=== PATIENT | female | born 1985 | race Caucasian/White ===

== ENCOUNTER 2020-03-16 09:12 | Outpatient (CLI) | payer MEDICAID, SELFPAY ==
--- NOTE | 2020-03-16 09:20 | US_ITS ---
WS: [id number] ULTRASOUND EARLY TECHNIQUE: Transabdominal sonography of the pelvis was performed. Followed by transvaginal sonography to better evaluate the uterus and ovaries. CLINICAL INFORMATION: SUPERVISION NORMAL LMP: 01/11/2020 Beta hCG: Unknown. COMPARISON: None. FINDINGS: Cervix measures 3.8 cm UTERUS AND GESTATIONAL SAC Intrauterine gestations: Estimated gestational age: 9w3d Estimated delivery October 16, 2020 Yolk sac: 0.6 cm. [place] rump length (CRL): 2.7 cm. heart motion: 167 BPM. Subchorionic hemorrhage: None. OVARIES Right ovary: Normal. Left ovary: Normal. FREE FLUID None. US/US OB <= 14 weeks fetus [id number] IMPRESSION: 1. Single live intrauterine . 2. Estimated gestational age; 9w3d with estimated date of delivery October 16, 2020 3. Normal adnexa.
== END 2020-03-16 09:13 | disposition home or self-care (01) ==
LOC: RAD 09:14
PROVIDERS: PCP Family Medicine; Visit Provider Family Medicine
DX: Z34.91 Encounter for supervision of normal pregnancy, unspecified, first trimester (principal); Z3A.09 9 weeks gestation of pregnancy
CPT/HCPCS: 76801

== ENCOUNTER 2020-04-27 14:57 | Outpatient (CLI) | payer MEDICAID, SELFPAY ==
--- NOTE | 2020-04-27 15:02 | US_ITS ---
WS: [id number] ULTRASOUND OB LIMITED TECHNIQUE: Limited ultrasound examination of the fetus. CLINICAL INFORMATION: VAGINAL BLEEDING,SECOND TRIMESTER COMPARISON: March 16, 2020 FINDINGS: Cervix is long and closed. Cervix measures 2.8 cm. Single interuterine gestation. presentation is cephalic Placental location is anterior. Slightly low-lying placenta. Recommend third trimester follow-up. Sahil centa grade: 0. heart rate 167 BPM. Single vertical pocket amniotic fluid 2.2 cm Anatomy: BDP: 3.0 cm = 15w4d HC: 11.6 cm = 15w5d EGA by ultrasound: 15w5d UCCA by ultrasound: 10/14/2020 US/[place] [id number] IMPRESSION: 1. Single intrauterine gestation with cephalic presentation. 2. Anterior low-lying placenta. Recommend third trimester follow-up. 3. Normal amniotic fluid volume. 4. Cervix is closed measuring 2.8 cm.
== END 2020-04-27 14:58 | disposition home or self-care (01) ==
LOC: RAD 14:58
PROVIDERS: PCP Family Medicine; Visit Provider Family Medicine
DX: O46.92 Antepartum hemorrhage, unspecified, second trimester (principal)
CPT/HCPCS: 76816

== ENCOUNTER 2020-05-25 09:03 | Outpatient (CLI) | payer MEDICAID, SELFPAY ==
--- NOTE | 2020-05-25 09:12 | US_ITS ---
WS: [id number] OBSTETRICAL ULTRASOUND COMPLETE HISTORY: ANATOMY/NORMAL COMPARISON: 03/16/2020 and 04/27/2020 Single intrauterine gestation in breech presentation. Cervix is Closed and normal length. Cervical length is 5.2 cm. Normal amount of amniotic fluid surrounds the fetus. Placenta: Placenta is anterior with no previa or abruption. Placenta grade 1. Fluid collection along the posterior wall of the uterus. This is opposite to the placenta. There is a n elongated fluid collection extending over a length of 8.8 cm byr 1.5 cm. This is beneath amnion or combination of the amnion and chorionic plate. This complex fluid collection is more cystic than on t he prior study and extends to just above the internal cervical os. Heart: 180 BPM. 4 chambers are identified. Poorly visualized outflow tracts. Anatomy: Intracranial structures and spine are negative. kidneys, stomach and urinary bladder a re unremarkable. Abdominal wall, three-vessel cord and cord insertion site are normal. 4 extremities are present. profile: Unremarkable. Gender: Female. measurements: BPD = 4.5 cm = 19w4d HC = 16.9 cm = 19w4d AC = 14.1 cm = 19w4d FL = 3.1 cm = 19w4d EFW: 298 g. Biometry is internally concordant. AGA by ultrasound: 19w4d CUCA by ultrasound: 10/15/2020 US/US OB >= 14 weeks fetus [id number] IMPRESSION: 1. Single intrauterine gestation of 19w4d with an CUCA of 10/15/2020. Appropria te growth since the first trimester ultrasound. 2. Limited visualization of four-chamber heart and outflow tracts. Otherwise a natomy is negative. 3. Elongated fluid collection along the posterior uterine wall, opposite from the placenta. Fluid collection is more cystic than on the prior study and is b eneath the amnion or amnion and chorion plate. Differential is subchorionic hem orrhage or chorioamniotic separation. Due to its large size and extension close to the internal cervical os further evaluation by maternal medicine is r ecommended. Notified Alfa Spencer MD at 05/25/2020 1:00 PM.
== END 2020-05-25 09:04 | disposition home or self-care (01) ==
LOC: RAD 09:06
PROVIDERS: PCP Family Medicine; Visit Provider Family Medicine
DX: Z34.82 Encounter for supervision of other normal pregnancy, second trimester; Z3A.19 19 weeks gestation of pregnancy
CPT/HCPCS: 76805

== ENCOUNTER 2020-06-29 10:35 | Outpatient (CLI) | payer MEDICAID, SELFPAY ==
--- NOTE | 2020-06-29 10:53 | US_ITS ---
WS: [id number] ULTRASOUND OB FOCUSED HISTORY: CERVICAL LENGTH-EVALUATE FUNNELING/NORMAL COMPARISON: 05/25/2020 Single intrauterine gestation is identified in cephalic position. Cervix is closed measuring 3.2 cm i n length. No insufficiency. heart rate at 147 BPM. Normal amount of amniotic fluid. Placenta is anterior grade 1. No previa. Previously described subamn ionic collection along the posterior uterine wall has decreased now measuring 5.7 cm in length by 1.2 cm. Near complete resolution. US/[place] [id number] IMPRESSION: 1. Near complete resolution of the subdural amniotic collection along the post erior uterine wall since 05/25/2020. 2. Cervix is closed. No cervical insufficiency.
== END 2020-06-29 10:36 | disposition home or self-care (01) ==
LOC: RAD 10:36
PROVIDERS: PCP Family Medicine; Visit Provider Family Medicine
DX: O26.879 Cervical shortening, unspecified trimester (principal)
CPT/HCPCS: 76816

== ENCOUNTER 2020-09-04 12:50 | Outpatient (CLI) | payer MEDICAID, SELFPAY ==
[2020-09-04 13:02] VITALS: BP 125/68; PULSE 98
--- NOTE | 2020-09-04 13:11 | US_ITS ---
WS: [id number] BIOPHYSICAL PROFILE AND LIMITED OB. HISTORY: Gestational Diabetes COMPARISON: 06/29/2020 Presentation: Vertex. Cervix: Closed and normal length. Placenta: Anterior, no previa or abruption. Grade: 1 HEART: FHR of 129BPM. measurements: BPD = 8.2 cm = 33w0d HC = 30.6 cm = 34w0d AC = 30.5 cm = 34w3d FL = 6.6 cm = 34w0d ANALY: 7.4 cm EFW: 2362g; 62 %. AGA by ultrasound: 33w6d CUCA by ultrasound: 10/17/2020 Measurements are internally concordant. Appropriate growth since the first trimester ultrasound. Biophysical profile: Parameters are as follows: Breathin Movement: 2 Tone: 2 Fluid volume: 2 Largest vertical pocket of amniotic fluid is 2.0 cm. US/US OB lmt w/ BPP wo NST IMPRESSION: 1. Biophysical profile score: 8/8. 2. Single intrauterine gestation of 33w6d and 10/17/2020. Appropriate growth si nce the first trimester ultrasound. 3. Abdominal circumference at the 68th percentile. Biparietal diameter 19th per centile and head circumference 16th percentile. Consider 2-3 week follow-up to evaluate for developing macrosomia.
[2020-09-04 13:17] VITALS: BP 109/57; PULSE 88
[2020-09-04 13:32] VITALS: BP 123/58; PULSE 86
[2020-09-04 13:39] VITALS: BMI 34.4
[2020-09-04 13:47] VITALS: BP 123/67; PULSE 93
[2020-09-04 14:02] VITALS: BP 124/67; PULSE 83
== END 2020-09-04 14:45 | disposition home or self-care (01) ==
LOC: OPOB 12:57 → OBGYN 12:58
PROVIDERS: PCP Family Medicine; Visit Provider Family Medicine
DX: O16.9 Unspecified maternal hypertension, unspecified trimester (principal); Z3A.00 Weeks of gestation of pregnancy not specified
CPT/HCPCS: 59025; 76815; 76819

== ENCOUNTER 2020-09-07 09:25 | Outpatient (CLI) | payer MEDICAID, SELFPAY ==
[2020-09-07 09:32] VITALS: RESP 16; TEMP 36.3
[2020-09-07 09:33] VITALS: BMI 34.0
[2020-09-07 09:56] VITALS: BP 121/69; PULSE 98
--- NOTE | 2020-09-07 10:00 | US_ITS ---
WS: [id number] ULTRASOUND OB LIMITED TECHNIQUE: Limited ultrasound examination of the fetus. CLINICAL INFORMATION: with ANALY For Gest DM COMPARISON: None. FINDINGS: Cervix is closed and measures 3.7 cm Single interuterine gestation. Placental location is anterior. Placenta grade: 1-2 heart rate 160 BPM. ANALY 12.6 cm Biophysical profile 8 out of 8. breathin movement: 2 tone: 2 Amniotic fluid: 2 US/US OB lmt w/ BPP wo NST IMPRESSION: 1. Normal biophysical profile 8 out of 8 2. Cervix is long and closed measuring 3.7 cm 3. ANALY 12.6 cm greater than the 5th percentile and less than the median for ge stational age.
== END 2020-09-07 10:52 | disposition home or self-care (01) ==
LOC: OPOB 09:29 → OBGYN 09:31 → OPOB 09:41 → OBGYN 09:41
PROVIDERS: PCP Family Medicine; Visit Provider Family Medicine
DX: O26.899 Other specified pregnancy related conditions, unspecified trimester (principal); Z3A.00 Weeks of gestation of pregnancy not specified
CPT/HCPCS: 59025; 76815; 76819

== ENCOUNTER 2020-09-11 09:40 | Outpatient (CLI) | payer MEDICAID, SELFPAY ==
[2020-09-11 09:39] VITALS: BMI 34.7
[2020-09-11 09:46] VITALS: TEMP 36.2
[2020-09-11 09:47] VITALS: BP 118/62; PULSE 87
--- NOTE | 2020-09-11 10:16 | US_ITS ---
WS: [id number] ULTRASOUND OB LIMITED TECHNIQUE: Limited ultrasound examination of the fetus. CLINICAL INFORMATION: fluid level COMPARISON: September 07, 2020 FINDINGS: Closed cervix measures 5.4 cm Single interuterine gestation Placental location is anterior. Placenta grade: 1-2 heart rate 147 BPM. Biophysical profile 8 out of 8. breathin movement: 2 tone: 2 Amniotic fluid: 2 Normal biophysical profile 8 out of 8 Anatomy: BDP: 8.6 cm = 34w6d HC: 31.3 cm = 35w1d AC: 29.7 cm = 33w5d FEMUR LENGTH: 6.8 cm = 35w0d Estimated weight: 2398 g., %. EGA by ultrasound: 34w5d CUCA by ultrasound: 10/18/2020 US/US OB lmt w/ BPP wo NST IMPRESSION: 1. Normal BPP 8 out of 8. 2. Ultrasound gestational age 34 weeks 5 days with estimated delivery Octembe r 2020. 3. ANALY 12.6 cm greater than the 5th percentile and less than median for gestat ional age. 4. Closed cervix measuring 5.4 cm
== END 2020-09-11 11:19 | disposition home or self-care (01) ==
LOC: OPOB 09:41 → OBGYN 09:42
PROVIDERS: PCP Family Medicine; Visit Provider Family Medicine
DX: O24.419 Gestational diabetes mellitus in pregnancy, unspecified control (principal); Z3A.00 Weeks of gestation of pregnancy not specified
CPT/HCPCS: 59025; 76815; 76819

== ENCOUNTER 2020-09-18 10:50 | Outpatient (CLI) | payer MEDICAID, SELFPAY ==
[2020-09-18 11:00] VITALS: BMI 34.7
[2020-09-18 11:20] VITALS: RESP 16
--- NOTE | 2020-09-18 11:40 | US_ITS ---
WS: [id number] BIOPHYSICAL PROFILE AND LIMITED OB. HISTORY: please include ANALY and EFW COMPARISON: 03/16/2020, 09/07/2020 Presentation: Vertex. Cervix: Closed and normal length. Placenta: Anterior, no previa. Grade: 3 HEART: FHR of 138BPM. measurements: BPD = 8.9 cm = 35w6d HC = 32.4 cm = 36w5d AC = 32.9 cm = 36w6d FL = 7.0 cm = 35w6d ANALY: 8.2 cm, just above the 5th percentile for age. EFW: 2936g; 75 %. AGA by ultrasound: 36w2d CUCA by ultrasound: 10/14/2020 Biometry is internally concordant. Appropriate growth since the first trimester ultrasound of 03/16/19 21. Biophysical profile: Parameters are as follows: Breathin Movement: 2 Tone: 2 Fluid volume: 2 Largest vertical pocket of amniotic fluid is 3.2 cm. US/US OB lmt w/ BPP wo NST IMPRESSION: 1. Biophysical profile score: 8/8. 2. Single intrauterine gestation of 36w2d and 10/14/2020. Appropriate growth s little the first trimester ultrasound. 3. Estimated weight at the 75th percentile. 4. Amniotic fluid index at 8.2 cm. Just above the 5th percentile. Amniotic flu id index has decreased since 09/11/2020.
[2020-09-18 11:49] VITALS: BP 114/70; PULSE 96
== END 2020-09-18 12:19 | disposition home or self-care (01) ==
LOC: OPOB 10:53 → OBGYN 10:54
PROVIDERS: PCP Family Medicine; Visit Provider Family Medicine
DX: O24.419 Gestational diabetes mellitus in pregnancy, unspecified control (principal); Z3A.36 36 weeks gestation of pregnancy
CPT/HCPCS: 59025; 76815; 76819

== ENCOUNTER 2020-09-25 07:33 | Outpatient (CLI) | payer MEDICAID, SELFPAY ==
[2020-09-25 07:33] VITALS: BMI 33.6
[2020-09-25 07:47] VITALS: BP 122/71; PULSE 93
[2020-09-25 07:48] VITALS: TEMP 36.3
--- NOTE | 2020-09-25 07:52 | US_ITS ---
WS: [id number] ULTRASOUND OB LIMITED TECHNIQUE: Limited ultrasound examination of the fetus. CLINICAL INFORMATION: GESTIONAL DIABETIC COMPARISON: None. FINDINGS: Cervix is not well visualized. Single interuterine gestation. presentation is vertex heart rate 144 BPM. ANALY 11.45 cm above the fifth and below the median percentile for gestational age Biophysical profile 8 out of 8. breathin movement: 2 tone: 2 Amniotic fluid: 2 US/US OB BPP wo NST [id number] IMPRESSION: 1. Normal biophysical profile 8 out of 8 2. Cervix not well visualized. 3. ANALY greater than the 5th percentile and below the median for gestational ag e. 4. Vertex presentation
[2020-09-25 08:11] VITALS: BP 117/71; PULSE 96
[2020-09-25 08:31] VITALS: BP 117/69; PULSE 89
[2020-09-25 08:57] VITALS: BP 117/69; PULSE 89; TEMP 36.3
== END 2020-09-25 08:50 | disposition home or self-care (01) ==
LOC: OPOB 07:39 → OBGYN 07:40
PROVIDERS: PCP Family Medicine; Visit Provider Family Medicine
DX: O26.899 Other specified pregnancy related conditions, unspecified trimester (principal); Z3A.00 Weeks of gestation of pregnancy not specified
CPT/HCPCS: 59025; 76819; 99211

== ENCOUNTER 2020-10-04 18:02 | Inpatient (IN) | payer MEDICAID, SELFPAY ==
[2020-10-04] VITALS (19 sets, daily range): BP systolic 103–128; BP diastolic 55–74; PULSE 81–102; RESP 16; TEMP 36.2; BMI 33.5
[2020-10-04 19:16] LABS: Basophils % 0.3 %; Eosinophils # 0.2 10^3/uL (0.0-0.8); Eosinophils % 1.1 %; Hematocrit 35.1 % (37.0-47.0); Hemoglobin 11.5 g/dL (11.5-15.3); Lymphocytes # 2.1 10^3/uL (0.8-4.8); Lymphocytes % 14.8 %; Mean Corpuscular HGB Conc 32.8 g/dL (30.0-36.0); Mean Corpuscular Hemoglobin 31.9 pg (28.0-34.0); Mean Corpuscular Volume 97.2 fl (81-99); Mean Platelet Volume 12.1 fL (7.4-10.4); Monocytes # 0.8 10^3/uL (0.2-0.9); Neutrophils # 10.85 10^3/uL (1.8-7.7); Nucleated Red Blood Cells % 0 %; Platelet Count 221 10^3/cmm (130-400); Red Blood Count 3.61 10^6/uL (4.1-5.3); Red Cell Distribution Width 14.6 % (12.1-15.1); White Blood Count 14.1 10^3/uL (4.0-10.0)
[2020-10-04] MEDS: oxytocin 30 UNIT/500 ML BAG IV (19:20)
[2020-10-04] MEDS: dextrose 5%-lactated ringers 1,000 ML 125 ML IV (19:20)
[2020-10-04 19:41] LABS: Glucose Point of Care 95 mg/dL (70-110)
--- NOTE | 2020-10-04 20:40 | PM.HP ---
Providers/Chief Complaint Admitting Physician: Alfa Spencer MD Primary Care Provider: Alfa Spencer MD Chief Complaint: induction of labor History of Present Illness Peace Willis is a 35 year old at 38.0 weeks gestation by LMP consistent with 9-week ultrasound. Her is complicated by history of hemorrhage, history of LEEP, advanced maternal age, THC on initial drug screen, second trimester bleeding, anemia, gestational diabetes on Levemir 20 units daily, smoker. The patient is feeling well at this time. She presents for a scheduled induction due to difficulty with controlling her gestational diabetes. The patient's blood sugars have been over goal approximately 2 out of 3 times each day. For this reason we felt it was best to induce at 38 weeks gestation. The patient denies any chest pains, shortness of breath, nausea, vomiting, diarrhea, constipation, dysuria, leakage of fluid, vaginal bleeding. She has had some intermittent contractions prior to arrival. Upon arrival she is 2 cm dilated with 90% effacement. Medications/Allergies Home Medications Medication Instructions Recorded Confirmed Last Taken Type [id number]-ohasjsa fumarate-FA 1 tab PO DAILY 09/21/20 09/21/20 10/04/20 History [] 1200 ferrous sulfate [iron] 325 mg PO DAILY 09/21/20 09/25/20 10/04/20 History 1200 insulin NPH-regular hum s-syn ml SUBCUT 09/25/20 10/04/20 History 1200 Allergies Allergy/AdvReac Type Severity Reaction Status Date / Time Penicillins Allergy ALGY-Hives Verified 10/04/20 19:03 Sulfa (Sulfonamide Allergy ALGY-Rash Verified 10/04/20 19:03 Antibiotics) PFSH Acute PFSH: Surgical History (Updated 10/04/20 @ 20:54 by Alfa Spencer MD) H/O LEEP Social History (Updated 10/04/20 @ 20:55 by Alfa Spencer MD) Smoking and tobacco status: current every day smoker Alcohol intake: former Substance/Drug Use: former Marital status: Female Reproductive History: Date of last menstrual period: 01/11/20 : 6 Vitals/I&O/Wt Last Vital Signs Pulse 83 10/04/20 20:18 Resp 16 10/04/20 18:42 BP 116/68 10/04/20 20:18 Weight last 48 hrs Weight 183 lb Physical Exam Narrative: EXAM NARRATIVE: General: Alert and oriented x3 Eyes: Pupils equal round and reactive to light and accommodation Mouth: Mucous membranes moist, pharynx non-erythematous Cardiac: Regular rate and rhythm without murmurs Lungs: Clear to auscultation bilaterally without wheezes, crackles or rhonchi Abdomen: Soft, non-tender, fundus consistent with gestational age Extremities: Trace edema in the bilateral lower extremities Data : 10/04/20 18:12 A&P Additional A&P Information The patient's initial blood sugar is in the 90s. We will treat with insulin as needed for elevated blood sugars. Currently heart rate tracing is category 1. Contractions are every 3 to 5 minutes. The patient is feeling well overall. We'll proceed with induction of labor using IV Pitocin. The patient is GBS negative. She is Covid negative. All questions were answered. The patient is in agreement with the current plan of care. Proceed with induction of labor. Attestations Medical Necessity Statement*: The patient will be here for greater than 2 midnights due to routine intrapartum and management of labor and delivery. 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
[2020-10-04 23:41] LABS: Amphetamines Screen Urine Negative (Negative); Barbiturates Screen Urine Negative (Negative); Benzodiazepines Screen Urine Negative (Negative); Cocaine Screen Urine Negative (Negative); Opiate Screen Urine Negative (Negative); PCP Screen Urine Negative (Negative); THC Screen Urine Negative (Negative)
[2020-10-05] VITALS (86 sets, daily range): BP systolic 94–130; BP diastolic 51–86; PULSE 68–99; RESP 16–17; TEMP 36.1–36.6; O2SAT 93–100
[2020-10-05 00:06] LABS: Glucose Point of Care 106 mg/dL (70-110)
[2020-10-05] MEDS: lactated ringers 1,000 ML 999 ML IV ×2 (01:15→03:27)
--- NOTE | 2020-10-05 02:53 | P.ANESUD_ITS ---
Pre-Anesthetic Update Pre-Anesthetic Assessment: Date of Surgery/Procedure: 10/05/20 Preop Tangela gnosis: IUP Any changes to Pre-Anesthetic Assessment?: No Last Intake: meal 1200 clear liquids- current Labs Last 48hrs: Laboratory Results - last 48 hr 10/04/20 10/04/20 10/04/20 18:12 19:36 23:21 WBC 14.1 H RBC 3.61 L Hgb 11.5 Hct 35.1 L MCV 97.2 MCH 31.9 MCHC 32.8 RDW 14.6 Plt Count 221 MPV 12.1 H Neut % (Auto) 77.0 Lymph % (Auto) 14.8 [place] % (Auto) 6.0 Eos % (Auto) 1.1 Baso % (Auto) 0.3 Neut # (Auto) 10.85 H Lymph # (Auto) 2.1 [place] # (Auto) 0.8 Eos # (Auto) 0.2 Baso # (Auto) 0.0 Nucleated RBC % (a uto) 0 Nucleated RBCs # 0.0 POC Glucose 95 Urine Opiates Scre en Negative Ur Barbiturates Sc reen Negative Ur Phencyclidine S crn Negative Ur Amphetamines Sc reen Negative U Benzodiazepines Scrn Negative Urine Cocaine Scre en Negative U Marijuana (THC) Screen Negative 10/04/20 23:59 WBC RBC Hgb Hct MCV MCH MCHC RDW Plt Count MPV Neut % (Auto) Lymph % (Auto) [place] % (Auto) Eos % (Auto) Baso % (Auto) Neut # (Auto) Lymph # (Auto) [place] # (Auto) Eos # (Auto) Baso # (Auto) Nucleated RBC % (a uto) Nucleated RBCs # POC Glucose 106 Urine Opiates Scre en Ur Barbiturates Sc reen Ur Phencyclidine S crn Ur Amphetamines Sc reen U Benzodiazepines Scrn Urine Cocaine Scre en U Marijuana (THC) Screen Vitals: Temperature 97.2 F L 10/04/20 21:58 Pulse Rate 84 10/05/20 02:51 Pulse Rhythm 10/04/20 18:27 Pulse Strength 3+ Normal 10/04/20 18:27 Respiratory Rate 16 10/04/20 18:42 Respiratory Effort Non-Labored 10/04/20 18:27 Blood Pressure 110/63 10/05/20 02:51 Pulse Oximetry 97 10/05/20 02:51 Oxygen Delivery Me thod 10/04/20 18:27 Other Pertinent Information: Other Pertinent Information: current smoker. Cardiac Studies: No Data to Display Anesthesia Procedures Epidural: Time Out Performed: Yes Consents Signed: Procedure Consent Consent: from patient, risks and benefits reviewed and patient agrees to proceed Lumbar Level: L3-L4 Epidural position: sitting Epidural procedure: sterile prep of area, 1% lidocaine to numb the area, negative for paresthesia passed, neg for paresthesia, test dose given, 1.5% xylocaine 1:200k epi, placed PCEA, no systemic response, sterile dressing applied, L.U.D. no apparent complications and 0.2% Ropiavacaine @ mls/hr (13) Additional Comments: ABILIO at 8 cm catheter threaded to 13 cm VSS. Patient verbalized relief from epidural. - CSF - Heme
[2020-10-05] MEDS: dextrose 5%-lactated ringers 1,000 ML 125 ML IV (03:19)
[2020-10-05 04:12] LABS: Glucose Point of Care 110 mg/dL (70-110)
--- NOTE | 2020-10-05 06:28 | PM.PN ---
Subjective Subjective: Interval history: The patient is feeling well today. She is berta every 3 to 5 minutes. She has a laboring epidural and is comfortable. Vitals/I&O/Wt Last Vital Signs Temp 97.0 F L 10/05/20 03:22 Pulse 82 10/05/20 06:23 Resp 16 10/04/20 18:42 BP 100/57 10/05/20 06:23 Pulse Ox 98 10/05/20 04:11 10/04/20 10/04/20 10/05/20 14:59 22:59 06:59 Intake Total 1887.284 / 1887.284 Balance 1887.284 / 1887.284 Weight last 48 hrs Weight 183 lb Physical Exam Narrative: EXAM NARRATIVE: General: Alert and oriented x3 Cardiac: Regular rate and rhythm without murmurs Lungs: Clear to auscultation bilaterally without wheezes, crackles or rhonchi Abdomen: Soft, non-tender, fundus consistent with gestational age Extremities: Trace edema in the bilateral lower extremities Cervix:/-2 Urinary Catheter Management^: Joshi Latex: Cath Placed During This Visit: yes Reason for Continuing Indwelling Catheter: Required Immobilization for Trauma or Surgery or Anesthesia Urinary Catheter Date of Insertion: 10/05/20 Urinary Catheter Time of Insertion: 04:15 Data : 10/04/20 18:12 A&P Additional A&P Information The patient is doing well at this time. Contractions are spacing out some. Pitocin has been decreased due to concern for a late deceleration. The patient has a category 1 heart tone tracing. We will go ahead and increase the Pitocin again. She is making good cervical change. The head is ballotable at this time. We will plan to break water once the head was well applied to augment labor. Currently doing well. Epidural is working well. Blood sugar is 110. We will continue to monitor to be sure that it stays in a good range. Proceed with routine care for induction of labor. Attestations Medical Necessity Statement*: The patient will be here for greater than 2 midnights and management of labor and delivery. 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
[2020-10-05 08:05] LABS: Glucose Point of Care 98 mg/dL (70-110)
--- NOTE | 2020-10-05 08:35 | PM.DELIVERY ---
Delivery Note: Date of delivery: October 05, 2020 Pre-delivery diagnoses: 1. Intrauterine at 38.1 weeks gestation 2. Gestational diabetes on Levemir 3. Smoker 4. Second trimester bleeding 5. Advanced maternal age 6. History of hemorrhage Post-delivery diagnoses: 1. Intrauterine status post spontaneous vaginal delivery at 38.1 weeks gestation 2. Gestational diabetes on Levemir 3. Smoker 4. Second trimester bleeding 5. Advanced maternal age 6. History of hemorrhage Procedure: Spontaneous vaginal delivery Op report anesthesia: Epidural Delivering Physician: Alfa Spencer MD Estimated blood loss (mL): 100 Findings: Peace Willis is a 35 year old G6 now P4 status post spontaneous vaginal delivery at 38.1 weeks gestation by LMP consistent with 9-week ultrasound. Her was complicated by history of hemorrhage, history of LEEP, advanced maternal age, THC on initial drug screen, second trimester bleeding, anemia, gestational diabetes on Levemir 20 units daily, smoker. Pre-Delivery Course: The patient was admitted on 10/04/2020 at 6 PM secondary to gestational diabetes on Levemir with difficulty controlling blood sugars. The patient was 2 cm dilated upon presentation and was started on IV Pitocin. Patient made steady change overnight and received a laboring epidural. There were a few late decelerations without recurrent late decelerations. The patient continued to make good change and was complete by 7:55 AM on 10/05/2020. AROM was performed at 8:08 AM on 10/05/2020. Clear fluid was noted. Delivery: The patient began pushing at 8:11 AM on 10/05/2020 she pushed well and the infant delivered in the OA position at 8:13 AM on 10/05/2020. The right shoulder was the anterior shoulder and it delivered with ease. A nuchal cord was present but could not be reduced easily so the was delivered through the nuchal cord. The was crying immediately upon delivery. The mouth and nose were bulb suctioned by myself and the infant was placed on the mother's chest where the nurses were waiting to care for her. The cord was clamped by myself after approximately 1 minute and cut by the mother's daughter. Cord blood was obtained. The cord was then drained of blood and traction was placed on the umbilical cord. Uterine massage was carried out and the placenta delivered without complication at 8:18 AM on 10/05/2020. The placenta was noted to be intact with a central umbilical cord insertion site. There is a thin layer of what could have been a old clot or extra lobe that had previously. It was attached to the wall of the amniotic sac. No certain connection to the rest of the placenta was noted suggesting that this was likely an old clot. The cervix was inspected and no lacerations were noted. The vaginal wall was inspected and no lacerations were noted. The uterus was massaged and is noted to be firm and midline. The patient has very little bleeding at this time. EBL was 100 mL. Currently both the mother and infant are doing well. 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
[2020-10-05] MEDS: oxytocin 30 UNIT/500 ML BAG 600 UNIT IV (08:55)
--- NOTE | 2020-10-05 09:19 | PC.NURSE ---
note This mom attempted with her previous babies but it was interrupted with babies getting jaundice. This baby can latch rather well encouraged mom to feed to baby's demand. Taught mom to hand express but at this session no colostrum was returned. Provided Understanding book.
[2020-10-05] MEDS: ibuprofen 800 mg tablet PO ×3 (10:59→22:09)
[2020-10-05] MEDS: lanolin oint 7 gm 1 APPLIC TOPICAL (11:00)
[2020-10-05] MEDS: docusate sodium 100 mg Capsule PO (11:00)
[2020-10-05] MEDS: benzocaine-menthol 78 gm Canister 1 SPRAY TOPICAL (11:01)
--- NOTE | 2020-10-05 11:56 | PC.NURSE ---
Pt ambulated to bathroom without difficulty. Not able to void at this time, sandra care performed by pt. Pad and underwear put on. Gown changed. Pt ambulated back to bed, sitting up on side of bed to eat lunch.
--- NOTE | 2020-10-05 12:36 | PC.NURSE ---
Pt up to bathroom. Void 300mL. Mikki care by pt. Then ambulated to OB8 without difficulty. Oriented to room, call light, I&O sheet, and proud parent pack.
--- NOTE | 2020-10-05 16:05 | PC.RESP ---
SMOKING CESSATION INFORMATION SENT TO PATIENT.
[2020-10-05 21:43] LABS: Hematocrit 31.4 % (37.0-47.0); Hemoglobin 10.2 g/dL (11.5-15.3); Mean Corpuscular HGB Conc 32.5 g/dL (30.0-36.0); Mean Corpuscular Volume 98.4 fl (81-99); Mean Platelet Volume 11.7 fL (7.4-10.4); Platelet Count 186 10^3/cmm (130-400); Red Blood Count 3.19 10^6/uL (4.1-5.3); Red Cell Distribution Width 14.6 % (12.1-15.1); White Blood Count 9.8 10^3/uL (4.0-10.0)
[2020-10-06 04:52] VITALS: BP 122/73; PULSE 68; RESP 17; TEMP 36.6
--- NOTE | 2020-10-06 08:44 | PM.DCS ---
Discharge Providers Date of Admission: 10/04/20 18:02 Date of Discharge: October 06, 2020 Attending Provider at Admission: Alfa Spencer MD Attending Provider at Discharge: Alfa Spencer MD Primary Care Provider: Alfa Spencer MD Diagnoses at Discharge Other Information Additional DC diagnoses/information: 1. Intrauterine status post spontaneous vaginal delivery at 38.1 weeks gestation 2. Gestational diabetes on Levemir 3. Smoker 4. Second trimester bleeding 5. Advanced maternal age 6. History of hemorrhage 7. Delivery of healthy female weighing 6 pounds 12 ounces with Apgars of 9 and 9 Reason for Visit Reason for Visit: induction of labor Hospital Course Hospital Course Peace Willis is a 35 year old G6 now P4 status post spontaneous vaginal delivery at 38.1 weeks gestation by LMP consistent with 9-week ultrasound. Her was complicated by history of hemorrhage, history of LEEP, advanced maternal age, THC on initial drug screen, second trimester bleeding, anemia, gestational diabetes on Levemir 20 units daily, smoker. Pre-Delivery Course: The patient was admitted on 10/04/2020 at 6 PM secondary to gestational diabetes on Levemir with difficulty controlling blood sugars. The patient was 2 cm dilated upon presentation and was started on IV Pitocin. Patient made steady change overnight and received a laboring epidural. There were a few late decelerations without recurrent late decelerations. The patient continued to make good change and was complete by 7:55 AM on 10/05/2020. AROM was performed at 8:08 AM on 10/05/2020. Clear fluid was noted. Delivery: The patient began pushing at 8:11 AM on 10/05/2020 she pushed well and the infant delivered in the OA position at 8:13 AM on 10/05/2020. The right shoulder was the anterior shoulder and it delivered with ease. A nuchal cord was present but could not be reduced easily so the was delivered through the nuchal cord. The infant was crying immediately upon delivery. The mouth and nose were bulb suctioned by myself and the was placed on the mother's chest where the nurses were waiting to care for her. The cord was clamped by myself after approximately 1 minute and cut by the mother's daughter. Cord blood was obtained. The cord was then drained of blood and traction was placed on the umbilical cord. Uterine massage was carried out and the placenta delivered without complication at 8:18 AM on 10/05/2020. The placenta was noted to be intact with a central umbilical cord insertion site. There is a thin layer of what could have been a old clot or extra lobe that had previously. It was attached to the wall of the amniotic sac. No certain connection to the rest of the placenta was noted suggesting that this was likely an old clot. The cervix was inspected and no lacerations were noted. The vaginal wall was inspected and no lacerations were noted. The uterus was massaged and is noted to be firm and midline. EBL was 100 mL. course: The patient is doing very well without any signs of complications. Her bleeding is decreasing well. She is ambulating, voiding, passing gas and tolerating food by mouth. She is showing no signs of complications. Routine instructions were discussed. All questions were answered. The patient is in agreement with discharge home today. Physical Exam Narrative: EXAM NARRATIVE: General: Alert and oriented x3 Cardiac: Regular rate and rhythm without murmurs Lungs: Clear to auscultation bilaterally without wheezes, crackles or rhonchi Abdomen: Soft, mild tenderness, uterus is firm and well below the umbilicus Extremities: Trace edema Urinary Catheter Management^: Joshi Latex: Cath Placed During This Visit: yes, but has since been removed by the nurse Reason for Continuing Indwelling Catheter: Decision to DC Catheter Urinary Catheter Date of Insertion: 10/05/20 Urinary Catheter Time of Insertion: 04:15 Date Urinary Catheter Removed: 10/05/20 Time Urinary Catheter Discontinued: 08:00 Discharge Data Data Completed and Pending: Labs from last 24 hours 10/05/20 20:50 WBC 9.8 RBC 3.19 L Hgb 10.2 L Hct 31.4 L MCV 98.4 MCH 32.0 MCHC 32.5 RDW 14.6 Plt Count 186 MPV 11.7 H Vitals: Last Vital Signs Temp 97.8 F 10/06/20 04:52 Pulse 68 10/06/20 04:52 Resp 17 10/06/20 04:52 BP 122/73 10/06/20 04:52 Pulse Ox 98 10/05/20 04:11 Discharge Plan Discharge Patient Disposition: Home Condition: Good Prescriptions: New sertraline 25 mg tablet 25 mg PO DAILY Qty: 30 RF: 1 ibuprofen 800 mg Tablet 800 mg PO TID Qty: 60 RF: 0 Continued 28-800 mg-mcg Tablet 1 tab PO DAILY RF: 0 Changed ferrous sulfate [iron] 325 mg (65 mg iron) Tablet 325 mg PO BIDWM 15 Days Qty: 30 RF: 0 Discontinued insulin NPH-regular hum s-syn 100 unit/mL (70-30) Solution SUBCUT RF: 0 Discharge Orders: Discharge Order (Routine); Ordered 10/06/20 Ordered By: Alfa Spencer Referrals: Alfa Spencer MD [Primary Care Provider] - 6 Weeks Discharge Diet: Usual diet Discharge Activity: Increase activity as tolerated Patient Instructions: Depression (GEN), Pre-eclampsia and Eclampsia (DC), Bleeding (DC), OB Discharge Report, OB Food/Drug Interaction Guide, Opioid Safety, OB Home Care, OB [facility] Parent Packet, OB Vaginal Deliveries Activity Restrictions/Additional Instructions: Nothing per vagina for 6 weeks. If you have any concerns, please contact Dr. Spencer's office. Discharge Attestations Time Spent in Discharge Care*: greater than 30 min Quality Metrics Clinical Quality Measures During this hospital stay, did patient experience: None Coding Level of Care Code Acute Chg FW DC note
[2020-10-06] MEDS: prenatal vitamin Capsule 1 CAP PO (09:46)
[2020-10-06] MEDS: ferrous sulfate EC 325 mg Tablet PO (09:46)
[2020-10-06] MEDS: docusate sodium 100 mg Capsule PO (09:47)
[2020-10-06] MEDS: ibuprofen 800 mg tablet PO (09:47)
[2020-10-06 10:46] VITALS: BP 116/78; PULSE 68; TEMP 36.9
[2020-10-06 11:00] VITALS: BP 116/78; PULSE 68; TEMP 36.9
--- NOTE | 2020-10-06 11:29 | ANE.PACU2 ---
Inpatient post-anesthesia follow up: Airway intact: Yes Vital signs: Temperature 98.5 F Pulse Rate 68 Respiratory Rate 17 Blood Pressure 116/78 Pulse Oximetry 98 Oxygen Delivery Me thod Room Air Oxygen Flow Rate Fraction of Inspir ed Oxygen Hydration adequate: Yes Nausea and vomiting: No Pain level: 1 Mental status: Baseline
== END 2020-10-06 11:15 | disposition home or self-care (01) | DRG 807 ==
LOC: OPOB 18:12 → OBGYN 18:13 → OPOB 18:18 → OBGYN 18:18
PROVIDERS: Admitting Provider Family Medicine; PCP Family Medicine; Visit Provider Family Medicine
DX: O24.424 Gestational diabetes mellitus in childbirth, insulin controlled (principal); Z37.0 Single live birth; O99.334 Smoking (tobacco) complicating childbirth; F17.210 Nicotine dependence, cigarettes, uncomplicated; O76 Abnormality in fetal heart rate and rhythm complicating labor and delivery; O69.2XX0 Labor and delivery complicated by other cord entanglement, with compression, not applicable or unspecified; Z3A.38 38 weeks gestation of pregnancy
CPT/HCPCS: 36415; 36416; 51702; 59025; 59409; 80306; 82962; 85025; 85027; 98960; 99211; J2795

== ENCOUNTER 2024-03-09 15:53 | Outpatient (CLI) | payer MEDICAID, SELFPAY ==
--- NOTE | 2024-03-09 16:00 | MM_ITS ---
WS: [id number] BILATERAL 3D TOMOSYNTHESIS DIGITAL SCREENING MAMMOGRAPHY WITH CAD CLINICAL INFORMATION: SCREENING HISTORY: Screening mammogram. No current complaints. COMPARISON: Baseline TECHNIQUE: Bilateral CC and MLO views. FINDINGS: The breasts are composed of heterogeneous fibroglandular density tissue, which can limit the detectio n of small underlying mass lesions. No suspicious mass, asymmetry, calcifications, or architectural d istortion. No evidence of malignancy. MM/MM [facility] tomosynthesis [id number] IMPRESSION: DENSITY: The breasts are heterogeneously dense, which may obscure small masses. BI-RADS: 1 - Negative FOLLOW UP: 1 Year Follow-up Recommend return to annual screening mammography.
== END 2024-03-09 15:54 | disposition home or self-care (01) ==
LOC: MOBLMAM 15:54
PROVIDERS: PCP Nurse Practitioner Family; Visit Provider Nurse Practitioner Family
DX: Z12.31 Encounter for screening mammogram for malignant neoplasm of breast (principal); R92.323 Mammographic fibroglandular density, bilateral breasts; R92.333 Mammographic heterogeneous density, bilateral breasts
CPT/HCPCS: 77063; 77067